=== PATIENT | female | born 1985 | race American Indian/Alaskan Native ===

== ENCOUNTER 2018-02-21 11:06 | Emergency (ER) | payer MEDICAID ==
[2018-02-21 11:21] VITALS: BP 139/94
--- NOTE | 2018-02-21 14:05 | XRay Report ---
ROUTINE CHEST, TWO VIEWS: HISTORY: Dyspnea. The trachea, heart, mediastinal contour, and lung brush are unremarkable. There is moderate to severe dextroscoliosis of the lower thoracic spine. IMPRESSION: Unremarkable chest x-ray. Scoliosis.
--- NOTE | 2018-02-21 14:30 | Emergency Department Report ---
- General Chief Complaint: Upper Respiratory Infection Stated Complaint: COLD Time Seen by Provider: 02/21/18 13:22 Source: patient Mode of arrival: Ambulatory Limitations: No Limitations - History of Present Illness Initial Comments: This is a 32-year-old female nontoxic, well nourished in appearance, no acute signs of distress presents to the ED with c/o of nonproductive cough, rhinorrhea, nasal congestion, itchy throat, and bilateral itchy ears x2 days. Patient describes cough as dry and nonproductive. Patient adenies any sick contact. Patient stated has seasonal allergies and takes OTC medications with limited relief. Patient denies any recent travels, long car, recent hospital stays. Patient denies any calf pain or calf tenderness. Patient denies any chest pain, short of breath, fever, chills, nausea, vomiting, hemoptysis, numbness, tingling, headache or stiff neck. Patient states allergies to Percocet. PMH includes arthritis and asthma. MD Complaint: cough, rhinorrhea, nasal congestion -: days(s) (2) Severity: mild Consistency: constant Improves With: nothing Worsens With: nothing Associated Symptoms: rhinorrhea, nasal congestion, cough. denies: fever, chills , diaphoresis, headache, sore throat, stiff neck, chest pain, shortness of breath, abdominal pain, nausea, vomiting, diarrhea, dysuria, rash, confusion, right sweats, weight loss, epistaxis, hoarseness, ear pain Treatments Prior to Arrival: none - Related Data Previous Rx's Medication Instructions Recorded Last Taken Type Pseudoephed/Cod/Guaifen 5 ml PO Q6H PRN #120 ml 01/09/16 Unknown Rx [Robitussin DAC 10-100-30Mg/5Ml] Benzonatate [Tessalon Perle] 100 mg PO Q8H PRN #30 capsule 02/21/18 Unknown Rx Fluticasone [Flonase] 1 spray NS QDAY #1 bottle 02/21/18 Unknown Rx Loratadine [Claritin] 10 mg PO DAILY #30 tablet 02/21/18 Unknown Rx Prednisone [predniSONE 10 mg 10 mg PO .TAPER #1 tab.ds.pk 02/21/18 Unknown Rx (6-Day Pack, 21 Tabs)] Allergies Allergy/AdvReac Type Severity Reaction Status Date / Time acetaminophen [From Percocet] Allergy Unknown Verified 02/21/18 11:21 oxycodone [From Percocet] Allergy Unknown Verified 02/21/18 11:21 ED Review of Systems ROS: Stated complaint: COLD Other details as noted in HPI Constitutional: denies: chills, fever Eyes: denies: eye pain, eye discharge, vision change ENT: denies: ear pain, throat pain Respiratory: cough. denies: shortness of breath, wheezing Cardiovascular: denies: chest pain, palpitations Endocrine: no symptoms reported Gastrointestinal: denies: abdominal pain, nausea, diarrhea Genitourinary: denies: urgency, dysuria, discharge Musculoskeletal: denies: back pain, joint swelling, arthralgia Skin: denies: rash, lesions Neurological: denies: headache, weakness, paresthesias Psychiatric: denies: anxiety, depression Hematological/Lymphatic: denies: easy bleeding, easy bruising ED Past Medical Hx - Past Medical History Hx Arthritis: Yes Hx Asthma: Yes - Surgical History Additional Surgical History: hernia surgery 2010 - Social History Smoking Status: Never Smoker Substance Use Type: None - Medications Home Medications: Home Medications Medication Instructions Recorded Confirmed Last Taken Type Pseudoephed/Cod/Guaifen 5 ml PO Q6H PRN #120 ml 01/09/16 Unknown Rx [Robitussin DAC 10-100-30Mg/5Ml] Benzonatate [Tessalon Perle] 100 mg PO Q8H PRN #30 capsule 02/21/18 Unknown Rx Fluticasone [Flonase] 1 spray NS QDAY #1 bottle 02/21/18 Unknown Rx Loratadine [Claritin] 10 mg PO DAILY #30 tablet 02/21/18 Unknown Rx Prednisone [predniSONE 10 mg 10 mg PO .TAPER #1 tab.ds.pk 02/21/18 Unknown Rx (6-Day Pack, 21 Tabs)] ED Physical Exam - General Limitations: No Limitations General appearance: alert, in no apparent distress - Head Head exam: Present: atraumatic, normocephalic - Eye Eye exam: Present: normal appearance Pupils: Present: normal accommodation - ENT ENT exam: Present: normal exam, normal orophraynx, mucous membranes moist, TM's normal bilaterally, normal external ear exam - Neck Neck exam: Present: normal inspection, full ROM. Absent: tenderness, meningismus, lymphadenopathy - Respiratory Respiratory exam: Present: normal lung sounds bilaterally. Absent: respiratory distress, wheezes, rales, rhonchi, stridor, chest wall tenderness, accessory muscle use, decreased breath sounds, prolonged expiratory - Cardiovascular Cardiovascular Exam: Present: regular rate, normal rhythm, normal heart sounds. Absent: bradycardia, tachycardia, irregular rhythm, systolic murmur, diastolic murmur, rubs, gallop - GI/Abdominal GI/Abdominal exam: Present: soft, normal bowel sounds. Absent: distended, tenderness, guarding, rebound, rigid, diminished bowel sounds - Rectal Rectal exam: Present: deferred - Extremities Exam Extremities exam: Present: normal inspection, full ROM, normal capillary refill - Back Exam Back exam: Present: normal inspection, full ROM - Neurological Exam Neurological exam: Present: alert, oriented X3, normal gait - Psychiatric Psychiatric exam: Present: normal affect, normal mood - Skin Skin exam: Present: warm, dry, intact, normal color. Absent: rash ED Course Vital Signs 02/21/18 11:18 Temperature 99.3 F Pulse Rate 70 Respiratory 18 Rate Blood Pressure 139/94 O2 Sat by Pulse 98 Oximetry - Reevaluation(s) Reevaluation #1: 02/21/18 14:40 Patient is speaking in full sentences with no signs of distress noted. - Consultations Consultation #1: 02/21/18 14:40 Patient has been consulted with Dr. Kenny about patient history, physical exam, and xray and examined and screened patient and agrees to ED plan of care and discharge plan of care. ED Medical Decision Making - Medical Decision Making This is a 32-year-old female that presents with cough s/p seasonal allergies. Patient is stable and was examined by me. Chest x-ray has been obtained and dictated by radiologist with normal exam. Patient is notified of x-ray results with no questions noted. Patient be treated with prednisone, Flonase, Claritin and Tessalon Perles. Patient was instructed Follow-up with a primary care doctor in 3-5 days or if symptoms worsen and continue return to emergency room as soon as possible. At time time of discharge, the patient does not seem toxic or ill in appearance. No acute signs of distress noted. Patient agrees to discharge treatment plan of care. No further questions noted by the patient. Critical care attestation.: If time is entered above; I have spent that time in minutes in the direct care of this critically ill patient, excluding procedure time. ED Disposition Clinical Impression: Cough Seasonal allergic rhinitis Qualifiers: Allergic rhinitis trigger: pollen Qualified Code(s): J30.1 - Allergic rhinitis due to pollen Disposition: DC-01 TO HOME OR SELFCARE Is pt being admited?: No Does the pt Need Aspirin: No Condition: Stable Instructions: Prednisone (By mouth), Benzonatate (By mouth), Fluticasone (Into the nose) Additional Instructions: Follow-up with a primary care doctor in 3-5 days or if symptoms worsen and continue return to emergency room as soon as possible. Prescriptions: Benzonatate [Tessalon Perle] 100 mg PO Q8H PRN #30 capsule PRN Reason: Cough Fluticasone [Flonase] 1 spray NS QDAY #1 bottle Loratadine [Claritin] 10 mg PO DAILY #30 tablet Prednisone [predniSONE 10 mg (6-Day Pack, 21 Tabs)] 10 mg PO .TAPER #1 tab.ds.pk Referrals: PRIMARY CAREMD [Primary Care Provider] - 3-5 Days EN PARIKH MD [Staff Physician] - 3-5 Days [facility] [Outside] - 3-5 Days [facility] [Outside] - 3-5 Days Forms: Work/School Release Form(ED)
[2018-02-21] MEDS ORDERED: MUCINEX ER PO ONE (14:31)
[2018-02-21] MEDS ORDERED: MOTRIN PO ONE (14:31)
[2018-02-21] MEDS ORDERED: TESSALON PERLES PO ONE (14:31)
--- NOTE | 2018-02-21 14:32 | Emergency Department Report ---
Chief Complaint: Upper Respiratory Infection Stated Complaint: COLD Time Seen by Provider: 02/21/18 13:22 - HPI History of Present Illness: The patient is an 32-year-old female who presents for evaluation of cough. The patient reports a cough for the past 2 days, associated with sore throat and ear pain. The patient denies fever, headache, neck pain, paresthesias, focal motor weakness, blurry vision, tinnitus, chest pain, hemoptysis, dyspnea, abdominal pain, confusion or altered mental status, or recent URI or diarrhea. - Exam Vital Signs: Vital Signs 02/21/18 11:18 Temperature 99.3 F Pulse Rate 70 Respiratory 18 Rate Blood Pressure 139/94 O2 Sat by Pulse 98 Oximetry MSE screening note: Focused history and physical exam performed. Due to findings the following was ordered: ED Disposition for MSE Clinical Impression: Cough Seasonal allergic rhinitis Qualifiers: Allergic rhinitis trigger: pollen Qualified Code(s): J30.1 - Allergic rhinitis due to pollen Disposition: DC-01 TO HOME OR SELFCARE Condition: Stable Instructions: Benzonatate (By mouth), Prednisone (By mouth), Fluticasone (Into the nose) Additional Instructions: Follow-up with a primary care doctor in 3-5 days or if symptoms worsen and continue return to emergency room as soon as possible. Prescriptions: Benzonatate [Tessalon Perle] 100 mg PO Q8H PRN #30 capsule PRN Reason: Cough Fluticasone [Flonase] 1 spray NS QDAY #1 bottle Loratadine [Claritin] 10 mg PO DAILY #30 tablet Prednisone [predniSONE 10 mg (6-Day Pack, 21 Tabs)] 10 mg PO .TAPER #1 tab.ds.pk Referrals: [facility] [Outside] - 3-5 Days [facility] [Outside] - 3-5 Days PRIMARY CARE, [Referring] - 3-5 Days EN PARIKH MD [Staff Physician] - 3-5 Days Forms: Work/School Release Form(ED)
[2018-02-22] MEDS ORDERED: DIPRIVAN 10 MG/ML 1,000 MG/100 ML BOTTLE IV ONE (16:04)
== END 2018-02-21 14:50 | disposition home or self-care (01) ==
LOC: ED 11:06
DX: J30.9 Allergic rhinitis, unspecified (principal); Z88.8 Allergy status to other drugs, medicaments and biological substances
CPT/HCPCS: 71046; 99283; J2704